=== PATIENT | male | born 1980 | race Caucasian/White ===

== ENCOUNTER 2019-04-09 09:20 | Emergency (ER) | payer MEDICAID ==
[~2019-04-09] VITALS: Ht 175.3 cm; Wt 86.4 kg
[2019-04-09 09:25] VITALS: BP 140/96; Ht 175.3 cm; Wt 86.4 kg
[2019-04-09] MEDS ORDERED: VOLTAREN75 MG PO (11:11)
== END 2019-04-09 12:24 | disposition home or self-care (01) ==
LOC: D.ER 09:20
DX: M25.531 Pain in right wrist (principal); S69.91XA Unspecified injury of right wrist, hand and finger(s), initial encounter; X58.XXXA Exposure to other specified factors, initial encounter; Y93.89 Activity, other specified; Y92.89 Other specified places as the place of occurrence of the external cause

== ENCOUNTER 2019-04-29 15:43 | Emergency (ER) | payer MEDICAID ==
[~2019-04-29] VITALS: Ht 175.3 cm; Wt 97.5 kg
[~2019-04-29 15:43] MED LIST: VOLTAREN75 MG PO
[2019-04-29 15:45] VITALS: Ht 175.3 cm; Wt 97.5 kg
[2019-04-29] MEDS ORDERED: ELIQUIS5 MG PO (17:40)
[2019-04-29 18:21] VITALS: BP 129/79
== END 2019-04-29 18:22 | disposition home or self-care (01) ==
LOC: D.ER 15:43
DX: M79.604 Pain in right leg (principal)

== ENCOUNTER → 2019-12-22 | Emergency (ER) | payer MEDICAID ==
[~2019-12-22] VITALS: Ht 175.3 cm; Wt 95.5 kg
[~2019-12-22] MED LIST changes: +AUGMENTIN 875-11 TAB PO; +CYCLOBENZAPRINE10 MG PO; +ELIQUIS5 MG PO; +FLORAJEN3 CAPS460 MG PO; +HYDROCODON-ACE1 EA10 PO; +TRAZODONE HCL150 MG PO
[2019-12-22 06:02] VITALS: BP 140/94; Ht 175.3 cm; Wt 95.5 kg
[2019-12-22 17:17] VITALS: Ht 175.3 cm; Wt 95.5 kg
== END | disposition home or self-care (01) ==
LOC: D.ER 05:53
DX: S61.451A Open bite of right hand, initial encounter (principal); W55.01XA Bitten by cat, initial encounter; Y93.9 Activity, unspecified; Y92.9 Unspecified place or not applicable

== ENCOUNTER 2019-12-26 11:42 | Inpatient (IN) | payer MEDICAID ==
[~2019-12-26] VITALS: Ht 175.3 cm; Wt 95.3 kg
[2019-12-26 12:44] LABS: BASOPHILS 0.1 % (0-2); EOSINOPHILS 2.5 % (0-7); HEMATOCRIT 44.3 % (42.0-54.0); HEMOGLOBIN 15.6 g/dL (13.5-17.5); IMMATURE GRANULOCYTES 0.1 % (0-5); LYMPHOCYTES 26.6 % (15-50); MCH 30.6 pg (26.0-34.0); MCHC 35.2 g/dL (31.0-37.0); MCV 86.9 fL (80.0-100.0); MEAN PLATELET VOLUME 8.7 fL (7.4-10.4); MONOCYTES 11.1 % (2-11); NEUTROPHILS 59.6 % (40-80); PLATELET COUNT 270 10x3/uL (130-400); RDW 13.6 % (11.5-14.5); WBC 7.6 10x3/uL (4.8-10.8)
[2019-12-26 12:52] LABS: CALC OSMOLALITY 278 mosm/kg (275-300); CALCIUM 9.1 mg/dL (8.5-10.1); CARBON DIOXIDE 30.6 mmol/L (21.0-32.0); CHLORIDE - SERUM 102 mmol/L (98-107); CREATININE - SERUM 0.9 mg/dL (0.6-1.3); GLUCOSE 77 mg/dL (74-106); POTASSIUM - SERUM 3.8 mmol/L (3.5-5.1); SODIUM 140 mmol/L (136-145); UREA NITROGEN 15 mg/dL (7-18); eGFR NON AFRICAN AMERICAN > 90 mL/min (90-120)
[2019-12-26 12:58] LABS: ALBUMIN 3.9 g/dL (3.4-5.0); ALKALINE PHOSPHATASE 53 U/L (30-120); ALT (SGPT) 34 U/L (10-68); PROTEIN - SERUM 8.3 g/dL (6.4-8.2)
--- NOTE | 2019-12-26 14:38 | NUR ---
I have reviewed this patient and I concur with the Shift Assessment completed by the Licensed Practical Nurse today this shift.
--- NOTE | 2019-12-26 15:00 | NUR ---
WOUND TO RT HAND FLUSHED WITH NORMAL SALINE, PACKED WITH 1/4" IODAFORM PACKING, COVERED WITH 4X4 AND WEAPPED WITH 3" MOODY WRAP.
[2019-12-26 15:35] VITALS: BP 125/85; BMI 31.0
--- NOTE | 2019-12-26 16:00 | NUR ---
ARRIVED TO UNIT PER W/C, DRESSING TO RIGHT HAND DRY AND INTACT, FINGERS TO RIGHT HAND WITH GOOD CAP REFILL, MEDICATED IN ER FOR PAIN, VANC INFUSING PER LFA, CONT TO MONITOR
--- NOTE | 2019-12-26 19:15 | NUR ---
PATIENT ALERT AND ORIENTED. AMBULATING AROUND ROOM WITH NO ISSUES. ROOM AIR. HAS RIGHT HAND DRESSING THAT HAS PADDING AND MOODY WRAP AROUND IT. PATIENT PULLED BACK AND SHOWED INCISION INBETWEEN 2ND AND THIRD DIGIT PACKING NOTED TO THE INCISION. PATIENT HAS LEFT FOREAM IV THAT IS SALINE LOCKED AT THIS TIME. STATES PAIN IS 7/10. DAY SHIFT RNBUCK, OBTAINING PAIN MEDICINE TO BE ADMINISTERED TO PATIENT. DENIES FURTHER NEEDS AT THIS TIME. CPOC.
[2019-12-26 20:00] VITALS: BP 131/89
--- NOTE | 2019-12-26 21:00 | NUR ---
PATIENT REQUESTING STADOL AT THIS TIME FOR 7/10 PAIN. STATES TORADOL GIVEN AT END OF PREVIOUS WAS SLIGHTLY EFFECTIVE. ADMINISTERED STADOL PER ORDER. DENIES FURTHER NEEDS AT THIS TIME. CPOC.
--- NOTE | 2019-12-27 01:26 | NUR ---
PATIENT AMBULATING HALLWAY. DENIES NEEDS AT THIS TIME. CPOC.
--- NOTE | 2019-12-27 02:46 | NUR ---
PROVIDED PRN TORADOL.
--- NOTE | 2019-12-27 03:01 | NUR ---
PATIENT HIT CALL LIGHT. PATIENT STATED "CAN I HAVE THE STADOL NOW" PATIENT
[2019-12-27 04:00] VITALS: BP 132/89
--- NOTE | 2019-12-27 07:10 | NUR ---
PT RESTING IN BED. NO SIGNS OF DISTRESS. IV TO LEFT FORARM PATENT NO REDNESS OR TENDERNESS. DRESSING TO RIGHT HAND CLEAN DRY AND INTACT. COMPLAINS OF PAIN. MEDICATIONS ALREADY GIVEN. DENIES ANY FURTHER NEED AT THIS TIME. CALL LIGHT IN REACH. BED LOW POSITION. NO FAMILY AT BEDSIDE AT THIS TIME.
--- NOTE | 2019-12-27 08:13 | NUR ---
SITTING UP IN BED. PATIENT IS WITHOUT DISTRESS.CALL LIGHT IN REACH
[2019-12-27 08:40] VITALS: BP 125/87
[2019-12-27 12:12] VITALS: BP 136/84
[2019-12-27 13:26] VITALS: Ht 175.3 cm; Wt 95.3 kg
[2019-12-27 16:33] VITALS: BP 131/81
[2019-12-27 20:00] VITALS: BP 141/89
[2019-12-28] VITALS: BP 123/78
--- NOTE | 2019-12-28 01:10 | NUR ---
REC'D.CHGE OF SHIFT WALKING ROUNDS NOT IN ROOM ON RETURNING TO FLOOR STATES WENT OUT TO SMOKE. EXPLAINED ON CROWNING HAMMER OPERATOR PAIN MED. NOT GOOD IDEA TO GO OUTSIDE POSSIBLE FALL AND INJURY. STATES BEEN GOING OUT ALL DAY NO ONE SAID I COULDN'T.SLING INTACT TO RIGHT ARM. WILL CONTINUE TO MONITOR FOR ANY CHGES.NEUROVASCULAR STATUS AND FOLLOW CURRENT PLAN OF CARE.
--- NOTE | 2019-12-28 02:31 | NUR ---
I have reviewed this patient and I concur with the Shift Assessment completed by the Licensed Practical Nurse today this shift.
[2019-12-28 04:00] VITALS: BP 130/89
--- NOTE | 2019-12-28 07:28 | NUR ---
ALERT AND ORIENTED. LUNGS CLEAR BILATERALLLY. HEART SOUNDS S1 AND S2 HEARD IN ALL SANDHU. BOWEL SOUNDS ACTIVE X 4. DRSG TO RIGHT HAND C/D/I. IV TO LFA PATENT WITHOUT REDNESS. DENIES PAIN. DENIES NEEDS. BED LOW. CALL GAMEZ AND PERSONAL ITEMS IN REACH. WILL CONTINUE TO MONITOR.
[2019-12-28 08:44] LABS: HEMOGLOBIN 14.1 g/dL (13.5-17.5); MCH 29.9 pg (26.0-34.0); MCHC 34.4 g/dL (31.0-37.0); MEAN PLATELET VOLUME 8.5 fL (7.4-10.4); PLATELET COUNT 244 10x3/uL (130-400); RBC 4.71 10x6/uL (4.20-6.10); RDW 13.6 % (11.5-14.5); WBC 6.2 10x3/uL (4.8-10.8)
[2019-12-28 08:52] LABS: C-REACTIVE PROTEIN 5.3 mg/dL (0.0-0.9); CALC OSMOLALITY 276 mosm/kg (275-300); CALCIUM 8.8 mg/dL (8.5-10.1); CARBON DIOXIDE 28.2 mmol/L (21.0-32.0); CHLORIDE - SERUM 103 mmol/L (98-107); CREATININE - SERUM 1.1 mg/dL (0.6-1.3); GLUCOSE 78 mg/dL (74-106); POTASSIUM - SERUM 3.7 mmol/L (3.5-5.1); SODIUM 139 mmol/L (136-145); UREA NITROGEN 13 mg/dL (7-18); eGFR NON AFRICAN AMERICAN 78 mL/min (90-120)
[2019-12-28 09:11] VITALS: BP 120/82
[2019-12-28 10:55] LABS: ERYTHROCYTE SEDIMENTATION RATE 31 mm/hr (0-15)
[2019-12-28 13:31] VITALS: BP 131/85
[2019-12-28 18:08] VITALS: BP 122/78
[2019-12-28 20:00] VITALS: BP 129/81
[2019-12-29 04:00] VITALS: BP 120/82
--- NOTE | 2019-12-29 04:11 | NUR ---
I have reviewed this patient and I concur with the Shift Assessment completed by the Licensed Practical Nurse today this shift.
--- NOTE | 2019-12-29 07:32 | NUR ---
ALERT AND ORIENTED. LUNGS CLEAR BILATERALLY. HEART SOUNDS S1 AND S2 HEARD IN ALL SANDHU. BOWEL SOUNDS ACTIVE X 4. DRSG TO RIGHT HAND C/D/I. IV TO LFA PATENT WITHOUT REDNESS. DENIES PAIN. DENIES NEEDS. BED LOW. CALL GAMEZ AND PERSONAL ITEMS IN REACH. WILL CONTINUE TO MONITOR.
[2019-12-29 09:53] VITALS: BP 137/90
--- NOTE | 2019-12-29 10:47 | MORECARE ---
CASE MANAGEMENT DISCHARGE SUMMARY PATIENT: KAMI NICOLE UNIT: [id number] ADM DATE: 12/26/19 AGE: 39 : 78 SEX: M ROOM/BED: D.2214 AUTHOR: MARIE ELLIS PHYSICIAN: REFERRING PHYSICIAN: BRYANT ESCOBAR MD DATE OF SERVICE: 12/29/19 Discharge Plan Patient Name: KAMI NICOLE Facility: [facility]:[place] : 1980 Planned Disposition: Home with Infusion Therapy Services Anticipated Discharge Date: Discharge Date: Expected LOS: Initial Reviewer: [email or web address] Initial Review Date: 12/26/2019 Generated: 12/29/19 11:46 am DCPIA - Discharge Planning Initial Assessment Updated by [email or web address]: Livia Anderson on 12/29/19 10:42 am * Is the patient Alert and Oriented? Yes * How many steps to enter\exit or inside your home? 0/1 FLIGHT * PCP DR FERGUSON * Pharmacy [facility] * Preadmission Environment Home with Family * ADLs Independent * Equipment None * List name and contact numbers for known caregivers / representatives who currently or will assist patient after discharge: VIVIANE () [phone] * Verbal permission to speak to the caregivers and representatives has been obtained from the patient. N/A * Community resources currently utilized None * Additional services required to return to the preadmission environment? Yes * Can the patient safely return to the preadmission environment? Yes * Has this patient been hospitalized within the prior 30 days at any hospital? Yes Patient Name: KAMI NICOLE Page [phone] at 1047 All edits/amendments must be made on the electronic document DICTATION DATE: 12/29/19 1046 GRANITE COUNTERTOP INSTALLER: KIRILL 12/29/19 1046 RPT#: [id number] DC DATE: STATUS: ADM IN [facility] [address] [place] [address] END OF REPORT
--- NOTE | 2019-12-29 10:53 | MORECARE ---
CASE MANAGEMENT DISCHARGE SUMMARY PATIENT: KAMI NICOLE UNIT: [id number] ADM DATE: 12/26/19 AGE: 39 : 78 SEX: M ROOM/BED: D.2214 AUTHOR: RHONDA,DOC PHYSICIAN: REFERRING PHYSICIAN: BRYANT ESCOBAR MD DATE OF SERVICE: 12/29/19 Discharge Plan Patient Name: KAMI NICOLE Facility: [facility]:[place] : 1980 Planned Disposition: Home with Infusion Therapy Services Anticipated Discharge Date: Discharge Date: Expected LOS: Initial Reviewer: [email or web address] Initial Review Date: 12/26/2019 Generated: 12/29/19 11:53 am Comments DCP- Discharge Planning Updated by [email or web address]: Livia Anderson on 12/29/19 9:[address] Patient Name: KAMI NICOLE Admission Status: ER Accout number: [id number] Admission Date: 12-26-2019 : 1980 Admission Diagnosis: Attending: BRYANT ESCOBAR Current LOS: 3 Anticipated DC Date: Planned Disposition: Home with Infusion Therapy Services Primary Insurance: MEDICAID [place] Discharge Planning Comments: CM met with patient to complete initial dc planning assessment. CM educated patient on the CM role and verbal consent given by patient to complete assessment. Patient lives at home with his where he is independent at home. At discharge patient plans to return home and feels this is a safe discharge. He will be discharged home with HH and IV abx. CM discussed availability of home health, rehab services, and medical equipment. He will wait till his comes to the hospital to pick out what company he wants to use. Patient denied known discharge needs at this time. CM will continue to follow and will assist as needed with dc plans/needs. Steel Wool Machine Operator: Livia Anderson DCPIA - Discharge Planning Initial Assessment Updated by [email or web address]: Livia Anderson on 12/29/19 10:42 am * Is the patient Alert and Oriented? Yes * How many steps to enter\exit or inside your home? 0/1 FLIGHT * PCP DR FERGUSON * Pharmacy [facility] * Preadmission Environment Home with Family * ADLs Independent * Equipment None * List name and contact numbers for known caregivers / representatives who currently or will assist patient after discharge: VIVIANE () [phone] * Verbal permission to speak to the caregivers and representatives has been obtained from the patient. N/A * Community resources currently utilized None * Additional services required to return to the preadmission environment? Yes * Can the patient safely return to the preadmission environment? Yes * Has this patient been hospitalized within the prior 30 days at any hospital? Yes Last DP export: 12/29/19 9:47 am Patient Name: KAMI NICOLE Page [phone] at 1053 All edits/amendments must be made on the electronic document DICTATION DATE: 12/29/191052 WILDLIFE FORENSIC GENETICIST: KIRILL 12/29/191052 RPT#: [id number] DC DATE: STATUS: ADM IN [facility] [address] [place] [address] END OF REPORT
[2019-12-29 13:11] VITALS: BP 126/87
[2019-12-29 17:02] VITALS: BP 121/79
--- NOTE | 2019-12-29 19:08 | NUR ---
REC'D. CHGE OF SHIFT WALKING ROUNDS NOT IN ROOM OFF GOING NURSE STATES OUTSIDE SMOKING. ON RETURN WILL MONITOR FOR ANY CHGES.IN NEUROVASCULAR STATUS AND FOLLOW CURRENT PLAN OF CARE.
[2019-12-29 20:00] VITALS: BP 124/79
[2019-12-30] VITALS: BP 126/77
--- NOTE | 2019-12-30 07:40 | NUR ---
ALERT AND ORIENTED. LUNGS CLEAR BILATERALLY. HEART SOUNDS S1 AND S2 HEARD IN ALL SANDHU. BOWEL SOUNDS ACTIVE X 4. DRSG TO RIGHT HAND C/D/I. IV TO LFA PATENT WITHOUT REDNESS. DENIES NEEDS. BED LOW. CALL GAMEZ AND PERSONAL ITEMS IN REACH. WILL CONTINUE TO MONITOR.
--- NOTE | 2019-12-30 08:06 | NUR ---
I have reviewed this patient and I concur with the Shift Assessment completed by the Licensed Practical Nurse today this shift.
[2019-12-30 09:34] VITALS: BP 116/80
--- NOTE | 2019-12-30 10:16 | NUR ---
DRSG CHANGED TO RIGHT HAND. NO S/SX INFECTION NOTED.
--- NOTE | 2019-12-30 11:01 | NUR ---
DISTRIBUTION CENTER ASSOCIATE DISCONTINUED. PRN PO PAIN MEDICATION GIVEN. WILL CONTINUE TO MONITOR.
[2019-12-30 13:04] VITALS: BP 126/83
--- NOTE | 2019-12-30 13:21 | NUR ---
RESTING IN BED. DENIES NEEDS. WILL CONTINUE TO MONITOR.
[2019-12-30 20:00] VITALS: BP 127/73
[2019-12-31 04:00] VITALS: BP 111/88
--- NOTE | 2019-12-31 06:51 | NUR ---
ASSESSED AT THE BEGINNING OF THE SHIFT. PT IS ALERT AND ORIENTED, ABLE TO VERBALIZE NEEDS. HE HAS BEEN UP AD COLLEEN TO THE BATHROOM AND OUT TO SMOKE. HE HAS ALSO REQUESTED TO NOT HAVE VITAL SIGNS TAKEN AT NIGHT BUT WE DID GET HIM TO GO AHEAD AND GET HIM UP FOR AM VITAL SIGNS.
[2019-12-31 08:43] VITALS: BP 130/80
--- NOTE | 2019-12-31 09:00 | NUR ---
ASSESSMENT PER FLOW SHEET. PATIENT IS WITHOUT DISTRESS.CALL LIGHT IN REACH
[2019-12-31 09:24] LABS: HEMATOCRIT 44.3 % (42.0-54.0); HEMOGLOBIN 14.8 g/dL (13.5-17.5); MCH 29.3 pg (26.0-34.0); MCHC 33.4 g/dL (31.0-37.0); MCV 87.7 fL (80.0-100.0); MEAN PLATELET VOLUME 8.5 fL (7.4-10.4); RBC 5.05 10x6/uL (4.20-6.10); RDW 13.3 % (11.5-14.5); WBC 4.6 10x3/uL (4.8-10.8)
[2019-12-31 09:25] LABS: PLATELET COUNT 302 10x3/uL (130-400)
[2019-12-31 09:34] LABS: C-REACTIVE PROTEIN 2.3 mg/dL (0.0-0.9); CALC OSMOLALITY 280 mosm/kg (275-300); CALCIUM 9.2 mg/dL (8.5-10.1); CARBON DIOXIDE 27.4 mmol/L (21.0-32.0); CHLORIDE - SERUM 106 mmol/L (98-107); CREATININE - SERUM 1.1 mg/dL (0.6-1.3); GLUCOSE 93 mg/dL (74-106); POTASSIUM - SERUM 3.8 mmol/L (3.5-5.1); SODIUM 141 mmol/L (136-145); UREA NITROGEN 13 mg/dL (7-18); eGFR NON AFRICAN AMERICAN 78 mL/min (90-120)
[2019-12-31 10:41] LABS: ERYTHROCYTE SEDIMENTATION RATE 29 mm/hr (0-15)
[2019-12-31 12:12] VITALS: BP 133/81
--- NOTE | 2019-12-31 15:59 | NUR ---
HAS BEEN OFF UNIT A COUPLE OF TIMES TODAY. STATES IV TENDER AND WANTS CHANED BEFORE NEXT ABX.PATIENT WANTS TO NAP AT PRESENT.
[2019-12-31 17:03] VITALS: BP 119/83
--- NOTE | 2019-12-31 17:36 | NUR ---
IV RESITED TO LEFT FOREARM X1 STICK ,20G. ASEPTIC TECH USED. PREVIOUS IV DCD WITH CATH TIP INTACT.
[2019-12-31 20:26] VITALS: BP 144/94
[2020-01-01 00:35] VITALS: BP 128/79
--- NOTE | 2020-01-01 08:06 | NUR ---
UP IN MORAN, DRESSING TO RIGHT HAND DRY AND INTACT, CONT TO MONITOR
[2020-01-01 09:52] VITALS: BP 136/88
[2020-01-01 14:24] VITALS: BP 124/77
[2020-01-01 16:56] VITALS: BP 130/91
--- NOTE | 2020-01-01 17:15 | NUR ---
DRESSING CHANGED TO RIGHT HAND, NO S/S OF INFECTION, RONALD WELL
--- NOTE | 2020-01-01 19:00 | NUR ---
PATIENT UP AND ABOUT TO GO FOR A WALK AROUND THE UNTI. PATIENT IN NO ACUTE DISTRESS AT THIS TIME.RIGHT ARM WRAPPED. IV IN LEFT FA,SL, NO REDNESS OR SWELLING.
[2020-01-01 20:00] VITALS: BP 128/86
[2020-01-02 08:38] VITALS: BP 129/91
--- NOTE | 2020-01-02 09:25 | NUR ---
RESTING IN BED, NO DISTRESS NOTED, MEDICTED FOR PAIN, SL IN PLACE, CONT TO MONITOR VITALS AND PAIN
[2020-01-02 12:33] VITALS: BP 129/82
[2020-01-02 17:07] VITALS: BP 138/88
--- NOTE | 2020-01-02 19:15 | NUR ---
PATIENT UP ABOUT TO GO FOR A WALK. IV IN LEFT FOREARM, SL, NO REDNESS OR SWELLING. PATIENT IN NO ACUTE DISTRESS AT THIS TIME. PATIENT STATES HE HAS NO NEEDS. BED IN LOW POSITION, RAILS X2.
[2020-01-02 19:52] VITALS: BP 146/91
--- NOTE | 2020-01-03 05:24 | NUR ---
PATIENT STARTED TO CUSS AT ME WHEN I CAME IN THE ROOM. PATIENT UNHOOKED HIS IV LINE WHILE HIS ANTIBIOTICS WHERE STILL RUNNING SO NOT EVEN HALF OF THE ANTIBIOTIC WAS FINISHED YET. HOOKED PATIENT BACK UP TO THE IV POLE. TOLD PATIENT TO PLEASE NOT UNHOOK HIMSELF AGAIN. PATIENT CONTINUED TO CUSS.
--- NOTE | 2020-01-03 06:15 | NUR ---
PATIENT REFUSED MIDNIGHT VITAL SIGNS AND 4AM VITALS. PATIENT SAYS HE WANTS TO GO TO A DIFFERENT HOSPITAL AND HE TOLD ME NOT TO GO BACK IN HIS ROOM AND CONTINUED TO CUSS AT ME.
--- NOTE | 2020-01-03 06:51 | NUR ---
PT C/O PAIN 05/05. GAVE PERCOCET-10 PO. PT STATED HE "WASN'T TRYING TO BE DIFFICULT" REFERRING TO AN INCIDENT EARLIER WHEN I OVERHEARD HIM CURSING HIS NURSE, AMY LEBLANC. I TOLD HIM HE SHOULD NOT HAVE CURSED HIS NURSE. HE SAID, "I DIDN'T CURSE HER, I JUST CALLED HER A BITCH. I DON'T CALL THAT CURSING." I SAID, "WELL, THAT IS CURSING." AND LEFT THE ROOM.
--- NOTE | 2020-01-03 08:00 | NUR ---
ASSESSMENT PER FLOW SHEET. PT IS WITHOUT DISTRESS.MONITOR FOR NEEDS
[2020-01-03] MEDS ORDERED: AUGMENTIN 875-11 TAB PO (08:18)
[2020-01-03] MEDS ORDERED: HYDROCODON-ACE1 EA10 PO (08:18)
[2020-01-03 08:56] VITALS: BP 131/80
--- NOTE | 2020-01-03 10:18 | NUR ---
IV DCD WITH CATH TIP INTACT. DISCHARGE INSTRUCTIONS,STATES UNDERSTANDING. LEFT UNIT FOR TRANSPORT HOME
--- NOTE | 2020-01-03 10:29 | MORECARE ---
CASE MANAGEMENT DISCHARGE SUMMARY PATIENT: KAMI NICOLE UNIT: [id number] ADM DATE: 12/26/19 AGE: 39 : 76 SEX: M ROOM/BED: D.2214 AUTHOR: RHONDADOC PHYSICIAN: REFERRING PHYSICIAN: BRYANT ESCOBAR MD DATE OF SERVICE: 01/03/20 Discharge Plan Patient Name: KAMI NICOLE Facility: [facility]:[place] : 1980 Planned Disposition: Home with Infusion Therapy Services Anticipated Discharge Date: Discharge Date: 01/03/2020 Expected LOS: Initial Reviewer: [email or web address] Initial Review Date: 12/26/2019 Generated: 01/03/20 11:28 am Comments DCP- Discharge Planning Updated by [email or web address]: Livia Anderson on 01/03/20 9:[address] LATE ENTRY; PER ORTHO PATIENT WILL NOT NEED IV ABX OR HOME HEALTH. PATIENT WILL BE DISCHARGED HOME TODAY WITHOUT ANY NEW NEEDS DCP- Discharge Planning Updated by [email or web address]: Livia Anderson on 12/29/19 8:[address] Patient Name: KAMI NICOLE Admission Status: ER Accout number: [id number] Admission Date: 12-26-2019 : 1980 Admission Diagnosis: Attending: BRYANT ESCOBAR Current LOS: 3 Anticipated DC Date: Planned Disposition: Home with Infusion Therapy Services Primary Insurance: MEDICAID [place] Discharge Planning Comments: CM met with patient to complete initial dc planning assessment. CM educated patient on the CM role and verbal consent given by patient to complete assessment. Patient lives at home with his where he is independent at home. At discharge patient plans to return home and feels this is a safe discharge. He will be discharged home with HH and IV abx. CM discussed availability of home health, rehab services, and medical equipment. He will wait till his comes to the hospital to pick out what company he wants to use. Patient denied known discharge needs at this time. CM will continue to follow and will assist as needed with dc plans/needs. Extruder Operator Helper: Livia Anderson DCPIA - Discharge Planning Initial Assessment Updated by [email or web address]: Livia Anderson on 12/29/19 10:42 am * Is the patient Alert and Oriented? Yes * How many steps to enter\exit or inside your home? 0/1 FLIGHT * PCP DR FERGUSON * Pharmacy [facility] * Preadmission Environment Home with Family * ADLs Independent * Equipment None * List name and contact numbers for known caregivers / representatives who currently or will assist patient after discharge: VIVIANE () [phone] * Verbal permission to speak to the caregivers and representatives has been obtained from the patient. N/A * Community resources currently utilized None * Additional services required to return to the preadmission environment? Yes * Can the patient safely return to the preadmission environment? Yes * Has this patient been hospitalized within the prior 30 days at any hospital? Yes Coverage Notice Reviewer: [email or web address] Jose Anderson Notice Issued Date-Time: 12/29/2019 15:00 Notice Type: Patient Choice Letter Notice Delivered To: Patient Relationship to Patient: Personal Lines Underwriter Name: Delivery Method: HAND - Hand Delivered Soni Days: Prior Verbal Notification: Recipient Understood Notice: Yes Recipient Signature: Yes Med Rec Note Co-signed by Attending: Coverage Notice Comment: TEX WITH ELITE Last DP export: 12/29/19 8:53 am Patient Name: KAMI NICOLE Page [id number] at 1029 All edits/amendments must be made on the electronic document DICTATION DATE: 01/03/20 1028 STENCIL MAKER: KIRILL 01/03/20 1028 RPT#: [id number] DC DATE:01/03/20 STATUS: DIS IN [facility] [address] [place] [address] END OF REPORT
--- NOTE | 2020-01-03 12:01 | MORECARE ---
CASE MANAGEMENT DISCHARGE SUMMARY PATIENT: KAMI NICOLE UNIT: [id number] ADM DATE: 12/26/19 AGE: 39 : 76 SEX: M ROOM/BED: D.2214 AUTHOR: RHONDA,DOC PHYSICIAN: REFERRING PHYSICIAN: BRYANT ESCOBAR MD DATE OF SERVICE: 01/03/20 Discharge Plan Patient Name: KAMI NICOLE Facility: [facility]:[place] : 1980 Planned Disposition: Home with Infusion Therapy Services Anticipated Discharge Date: Discharge Date: 01/03/2020 Expected LOS: 0 Initial Reviewer: [email or web address] Initial Review Date: 12/26/2019 Generated: 01/03/20 1:00 pm Comments DCP- Discharge Planning Updated by [email or web address]: Livia Anderson on 01/03/20 9:[address] LATE ENTRY; PER ORTHO PATIENT WILL NOT NEED IV ABX OR HOME HEALTH. PATIENT WILL BE DISCHARGED HOME TODAY WITHOUT ANY NEW NEEDS DCP- Discharge Planning Updated by [email or web address]: Livia Anderson on 12/29/19 8:[address] Patient Name: KAMI NICOLE Admission Status: ER Accout number: [id number] Admission Date: 12-26-2019 : 1980 Admission Diagnosis: Attending: BRYANT ESCOBAR Current LOS: 3 Anticipated DC Date: Planned Disposition: Home with Infusion Therapy Services Primary Insurance: MEDICAID [place] Discharge Planning Comments: CM met with patient to complete initial dc planning assessment. CM educated patient on the CM role and verbal consent given by patient to complete assessment. Patient lives at home with his where he is independent at home. At discharge patient plans to return home and feels this is a safe discharge. He will be discharged home with HH and IV abx. CM discussed availability of home health, rehab services, and medical equipment. He will wait till his comes to the hospital to pick out what company he wants to use. Patient denied known discharge needs at this time. CM will continue to follow and will assist as needed with dc plans/needs. Capacitor Tester: Livia Anderson DCPIA - Discharge Planning Initial Assessment Updated by [email or web address]: Livia Anderson on 12/29/19 10:42 am * Is the patient Alert and Oriented? Yes * How many steps to enter\exit or inside your home? 0/1 FLIGHT * PCP DR FERGUSON * Pharmacy [facility] * Preadmission Environment Home with Family * ADLs Independent * Equipment None * List name and contact numbers for known caregivers / representatives who currently or will assist patient after discharge: VIVIANE () [phone] * Verbal permission to speak to the caregivers and representatives has been obtained from the patient. N/A * Community resources currently utilized None * Additional services required to return to the preadmission environment? Yes * Can the patient safely return to the preadmission environment? Yes * Has this patient been hospitalized within the prior 30 days at any hospital? Yes Coverage Notice Reviewer: [email or web address] - Livia Anderson Notice Issued Date-Time: 12/29/2019 15:00 Notice Type: Patient Choice Letter Notice Delivered To: Patient Relationship to Patient: Consulting Intern Name: Delivery Method: HAND - Hand Delivered Soni Days: Prior Verbal Notification: Recipient Understood Notice: Yes Recipient Signature: Yes Med Rec Note Co-signed by Attending: Coverage Notice Comment: TEX WITH ELITE Last DP export: 01/03/20 9:29 am Patient Name: KAMI NICOLE Page [id number] at 1201 All edits/amendments must be made on the electronic document DICTATION DATE: 01/03/20 1200 WATER QUALITY CONTROL ENGINEER: KIRILL 01/03/20 1200 RPT#: [id number] DC DATE:01/03/20 STATUS: DIS IN [facility] [address] [place] [address] END OF REPORT
== END 2020-01-03 10:19 | disposition home or self-care (01) | DRG 581 ==
LOC: D.ER 11:42 → D.MS 13:47
PROVIDERS: Family Medicine; ADMIT Orthopaedic Surgery; ATTEND Orthopaedic Surgery
PROC: 0JBJ0ZZ Excision of Right Hand Subcutaneous Tissue and Fascia, Open Approach (ICD-10-PCS; 2019-12-27)
PROC: 0LQ70ZZ Repair Right Hand Tendon, Open Approach (ICD-10-PCS; principal; 2019-12-27 14:15)
DX: L03.113 Cellulitis of right upper limb (principal); W55.01XA Bitten by cat, initial encounter; Z72.0 Tobacco use

== ENCOUNTER → 2020-04-11 14:57 | Outpatient (CLI) | payer OTHER ==
[2019-12-27 13:26] VITALS: BMI 31.0
== END | disposition home or self-care (01) ==
LOC: D.US 14:57
PROVIDERS: ATTEND Nurse Practitioner
DX: R39.89 Other symptoms and signs involving the genitourinary system (principal)